=== PATIENT | male | born 1975 | race Caucasian/White ===

== ENCOUNTER 2019-11-25 15:04 | Inpatient (IN) | payer OTHER ==
[~2019-11-25] VITALS: Ht 177.8 cm; Wt 88.5 kg
--- OUTSIDE RECORDS SUMMARY | 2019-11-25 15:06 | XMS ---
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 [facility] has no Care Guidelines for this patient. Amor VISIT COUNT (12 MO.) [address] [place] [address] T[facility] TOTAL 12 NOTE: Visits indicate total known visits. ED/C VISIT TRACKING (12 MO.) 11/25/2019 15:04 [facility] TYPE: Emergency COMPLAINT: - CHEST PAIN, DIFFICULTY BREATHING 06/24/2019 21:41 [facility] TYPE: Emergency DIAGNOSES: - Migraine - Migraine, unspecified, intractable, without status migrainosu - migriane - Opioid dependence with withdrawal 06/24/2019 04:14 [facility] TYPE: Emergency DIAGNOSES: - Epigastric pain - Abdominal Pain - Constipation - ABD PAIN 05/03/2019 09:03 [facility] TYPE: Emergency DIAGNOSES: - Other acute postprocedural pain - Wound Check - Foot Pain 05/02/2019 13:31 [facility] TYPE: Emergency COMPLAINT: - PAIN IN LEFT SHOULDER DIAGNOSES: - Pain in left shoulder - Nicotine dependence, cigarettes, uncomplicated - SHLDER PAIN PCP UNK - Pain in left shoulder - Unspecified viral hepatitis C without hepatic coma 04/14/2019 19:22 [facility] TYPE: Emergency DIAGNOSES: - recheck foot infection - Acute lymphangitis, unspecified - Foot Pain - Cellulitis of right toe - Pain in right toe(s) 04/13/2019 22:51 [facility] TYPE: Emergency DIAGNOSES: - Cutaneous abscess of right foot - RT FOOT PAIN/ SWELLING - Skin Problem 03/25/2019 18:35 [facility] TYPE: Emergency DIAGNOSES: - Cutaneous abscess of right upper limb - Medication Refill - Opioid abuse, uncomplicated - Wound Check 03/20/2019 00:28 [facility] TYPE: Emergency DIAGNOSES: - Tachycardia, unspecified - Abscesses on arm and leg - Abscess - Cutaneous abscess of right upper limb - Other psychoactive substance abuse, in remission 03/14/2019 09:43 [facility] TYPE: Emergency COMPLAINT: - CELLULITIS OF RIGHT UPPER LIMB DIAGNOSES: - Cellulitis of right upper limb - ABSCESS PCP NONE 54 - Unspecified viral hepatitis C without hepatic coma - Nicotine dependence, cigarettes, uncomplicated - Cellulitis of right upper limb - ABSCESS PCP NONE 12/30/2018 13:35 [facility] TYPE: Emergency DIAGNOSES: - Abscess - right foot abscess 12/27/2018 12:07 [facility] TYPE: Emergency DIAGNOSES: - Abscesses - Cutaneous abscess, unspecified - Recurrent Skin Infections - Abscess INPATIENT VISIT TRACKING (12 MO.) 04/15/2019 00:03 [facility] [place] TYPE: Medical Surgical DIAGNOSES: - CELLULITIS 03/20/2019 05:27 [facility] [place] TYPE: Medical Surgical DIAGNOSES: - TACHYCARDIA [email or web address]
[2019-11-25] MEDS ORDERED: SUBOXONE 8 MG-1 EAC1 SL (15:19)
[2019-11-25] MEDS ORDERED: PROPRANOLOL HCL20 MG PO (15:19)
[2019-11-25] MEDS ORDERED: GABAPENTIN800 MG PO (15:20)
[2019-11-25] MEDS ORDERED: VENTOLIN HFA18 GM INH (15:20)
[2019-11-25] MEDS ORDERED: HYDROCHLOROTHIA25 MG PO (15:21)
[2019-11-25] MEDS ORDERED: LISINOPRIL10 MG PO (15:21)
--- NOTE | 2019-11-25 18:46 | NUR ---
PT LEFT AMA. THIS RN ENTERED ROOM AT 1835 TO DO PTS ADMISSION. PT SITTING ON THE EDGE OF THE BED, HESITENT TO GET HIS FEET IN THE BED. DISCUSSED WITH PT THE REASON THAT HE NEEDS TO STAY. PT ABLE TO ALLOW RN HOOK HIM UP TO DENTAL LABORATORY ASSISTANT. PT THEN STATED "I CAN'T STAY HERE, I CAN QUARENTINE AT HOME." THIS RN ATTEMPTED TO DISCUSS WITH PT THE RISKS OF GOING HOME. PT STATED HE UNDERSTANDS. DONNA RN IN ROOM TO ATTEMPT TO DISCUSS PT WITH PT TO STAY. THIS RN ABLE TO REMOVE IV AND GET PT TO SIGN AMA. DISCUSSED WITH PT WHEN TO RETURN TO THE ER. PT STATED HE UNDERSTANDS. PT WAS VERY RESPECTFUL HE LEFT AMA.
--- NOTE | 2019-11-26 12:35 | EKG ---
[facility] [address] [place], [place] [address] Signed Sinus tachycardia Otherwise normal ECG No previous ECGs available Confirmed by FABRICE CASTILLO MD ([id number]) on 11/26/2019 12:35:19 PM Electronically Signed By: FABRICE CASTILLO MD 11/26/19 1235 PATIENT NAME: JUAN JOSE FRANCO Electrocardiogram DATE OF : 73 PHYSICIAN: FABRICE CASTILLO MD REPORT #: [id number] REPORT IS CONFIDENTIAL AND NOT TO BE RELEASED WITHOUT AUTHORIZATION
--- NOTE | 2019-11-26 20:17 | PATH ---
[facility] [address] [facility] [place], [place] [address] Signed ORDERING PHYSICIAN: Troy Aguillon MD PATIENT NAME: JUAN JOSE FRANCOEL GENDER: Lorelei : 1975 SPECIMEN(S): No Source Given MOLECULAR PATHOLOGY RESULTS: SARS-CoV-2 Not Detected ADDITIONAL NOTES.: The [place] Fusion SARS-CoV-2 Assay is a multiplex real-time PCR (RT-PCR) in vitro diagnostic test intended for the qualitative detection of RNA from SARS-CoV-2 from individuals who meet COVID-19 clinical and/or epidemiological criteria. In general, SARS-CoV-2 RNA can be detected during the acute phase of infection. Positive results indicate the presence of SARS-CoV-2 RNA. Clinical correlation with patient history and other diagnostic information is necessary to determine patient infection status. Positive results do not rule out bacterial infection or co-infection with other viruses. Negative results do not preclude SARS-CoV-2 infection and should not be used as the sole basis for patient management decisions. Negative results must be combined with other clinical observations, patient history, and epidemiological information. The [place] Fusion SARS-CoV-2 Assay is not yet approved or cleared by the [place] FDA. When there are no FDA-approved or cleared tests available, and other criteria are met, FDA can make tests available under an emergency access mechanism called an Emergency Use Authorization (EUA). The EUA for this test is supported by the [place] of Health and Human Service's (HHS's) declaration that circumstances exist to justify the emergency use of in vitro diagnostics for the detection and/or diagnosis of the virus that causes COVID-19. This EUA will remain in effect for the duration of the COVID-19 declaration justifying emergency of IVDs, unless it is terminated or revoked by FDA, after which the test may no longer be used. The [place] Fusion SARS-CoV-2 Assay is for use only under EUA in US laboratories certified under the Clinical Laboratory Improvement Amendments of 1988 (CLIA) to perform high complexity tests. [facility] is certified under CLIA to perform high complexity PATIENT NAME: JUAN JOSE FRANCO PATHOLOGY DATE OF : 73 REPORT #: [id number] PHYSICIAN: LORE PATHOLOGY PCP: RAGHAVENDRA CARDENAS REPORT IS CONFIDENTIAL AND NOT TO BE RELEASED WITHOUT AUTHORIZATION [address] [address] Signed clinical laboratory testing. PERFORMING LABORATORY.: Molecular testing was performed by [facility] [address] [place], [place] [address], [place] [address] (Combination Presser: Wilman Fenton D.O.; CLIA#: [id number]) Diagnostician: System Interface Pathologist Electronically Signed 11/26/2019 Copies: ~ PATIENT NAME: JUAN JOSE FRANCO PATHOLOGY DATE OF : [birth year] REPORT #: [id number] PHYSICIAN: LORE PATHOLOGY PCP: RAGHAVENDRA CARDENAS REPORT IS CONFIDENTIAL AND NOT TO BE RELEASED WITHOUT AUTHORIZATION
== END 2019-11-25 18:50 | disposition left against medical advice (07) | DRG 206 ==
LOC: ED 15:04 → CCU 17:53
PROVIDERS: ADMIT Internal Medicine
DX: R09.02 Hypoxemia (principal); F11.20 Opioid dependence, uncomplicated; Z20.828 Contact with and (suspected) exposure to other viral communicable diseases; R06.02 Shortness of breath; R05 Cough; R07.9 Chest pain, unspecified; I10 Essential (primary) hypertension; F17.200 Nicotine dependence, unspecified, uncomplicated; M25.569 Pain in unspecified knee; Z79.899 Other long term (current) drug therapy; Z53.29 Procedure and treatment not carried out because of patient's decision for other reasons
CPT/HCPCS: 36600; 71045; 80053; 82803; 83735; 83880; 84484; 85025; 85379; 93005; 93010; 99285-25; C9803

== ENCOUNTER 2019-12-07 13:38 | Emergency (ER) | payer OTHER ==
[~2019-12-07] VITALS: Ht 177.8 cm; Wt 88.5 kg
[~2019-12-07 13:38] MED LIST: GABAPENTIN800 MG PO; HYDROCHLOROTHIA25 MG PO; LISINOPRIL10 MG PO; PROPRANOLOL HCL20 MG PO; SUBOXONE 8 MG-1 EAC1 SL; VENTOLIN HFA18 GM INH
--- OUTSIDE RECORDS SUMMARY | 2019-12-07 13:42 | XMS ---
PreManage Notification: JUAN JOSE FRANCO Security [employer] [place] Events No recent Security Events currently on file CRITERIA MET - [facility] - [facility] - 2 Visits in 30 Days CARE PROVIDERS RAGHAVENDRA CARDENAS Physician 11/26/2019-Current PHONE: [phone] [facility] has no Care Guidelines for this patient. Amor VISIT COUNT (12 MO.) [address] TOTAL 13 NOTE: Visits indicate total known visits. ED/UCC VISIT TRACKING (12 MO.) 12/07/2019 13:39 [facility] TYPE: Emergency COMPLAINT: - CHEST PAIN, SOB 11/25/2019 15:04 [facility] TYPE: Emergency COMPLAINT: - CHEST PAIN, DIFFICULTY BREATHING 06/24/2019 21:41 [facility] TYPE: Emergency DIAGNOSES: - Migraine - Migraine, unspecified, intractable, without status migrainosu - migriane - Opioid dependence with withdrawal 06/24/2019 04:14 [facility] TYPE: Emergency DIAGNOSES: - Epigastric pain - Abdominal Pain - Constipation - ABD PAIN 05/03/2019 09:03 [facility] TYPE: Emergency DIAGNOSES: - Other acute postprocedural pain - Wound Check - Foot Pain 05/02/2019 13:31 [facility] TYPE: Emergency COMPLAINT: - PAIN IN LEFT SHOULDER DIAGNOSES: - Pain in left shoulder - Nicotine dependence, cigarettes, uncomplicated - SHLDER PAIN PCP UNK - Pain in left shoulder - Unspecified viral hepatitis C without hepatic coma 04/14/2019 19:22 [facility] TYPE: Emergency DIAGNOSES: - recheck foot infection - Acute lymphangitis, unspecified - Foot Pain - Cellulitis of right toe - Pain in right toe(s) 04/13/2019 22:51 [facility] TYPE: Emergency DIAGNOSES: - Cutaneous abscess of right foot - RT FOOT PAIN/ SWELLING - Skin Problem 03/25/2019 18:35 [facility] TYPE: Emergency DIAGNOSES: - Cutaneous abscess of right upper limb - Medication Refill - Opioid abuse, uncomplicated - Wound Check 03/20/2019 00:28 [facility] TYPE: Emergency DIAGNOSES: - Tachycardia, unspecified - Abscesses on arm and leg - Abscess - Cutaneous abscess of right upper limb - Other psychoactive substance abuse, in remission 03/14/2019 09:43 [facility] TYPE: Emergency COMPLAINT: - CELLULITIS OF RIGHT UPPER LIMB DIAGNOSES: - Cellulitis of right upper limb - ABSCESS PCP NONE 54 - Unspecified viral hepatitis C without hepatic coma - Nicotine dependence, cigarettes, uncomplicated - Cellulitis of right upper limb - ABSCESS PCP NONE 12/30/2018 13:35 [facility] DIAGNOSES: - Abscess - right foot abscess 12/27/2018 12:07 [facility] DIAGNOSES: - Abscesses - Cutaneous abscess, unspecified - Recurrent Skin Infections - Abscess INPATIENT VISIT TRACKING (12 MO.) 11/25/2019 17:53 [facility] TYPE: Critical Care COMPLAINT: - HYPOXEIA,COVID RULE OUT DIAGNOSES: - Essential (primary) hypertension - Other tank terminal gauger (current) drug therapy - Pain in unspecified knee - Chest pain, unspecified - Chest pain, unspecified - Essential (primary) hypertension - Nicotine dependence, unspecified, uncomplicated - Hypoxemia - Contact with and (suspected) exposure to other viral communic - Pain in unspecified knee - Shortness of breath - Procedure and treatment not carried out because of patient's - Opioid dependence, uncomplicated - Other usp (current) drug therapy - Opioid dependence, uncomplicated - Cough - Procedure and treatment not carried out because of patient's - Contact with and (suspected) exposure to other viral communic - Cough - Shortness of breath - Nicotine dependence, unspecified, uncomplicated 04/15/2019 00:03 [facility] [place] TYPE: Medical Surgical DIAGNOSES: - CELLULITIS 03/20/2019 05:27 [facility] [place] TYPE: Medical Surgical DIAGNOSES: - [email or web address] [email or web address]
[2019-12-07] MEDS ORDERED: PREDNISONE20 MG PO (14:28)
--- NOTE | 2019-12-07 20:07 | EKG ---
[facility] [address] [facility] [place], [place] [address] Signed Sinus tachycardia with short [place] Possible Left atrial enlargement Possible Inferior infarct , age undetermined Abnormal ECG When compared with ECG of 25-NOV-2019 15:11, No significant change was found Confirmed by HOMAR HOLLEY DO ([id number]) on 12/07/2019 8:07:41 PM Electronically Signed By: HOMAR HOLLEY DO 12/07/192006 PATIENT NAME: JUAN JOSE FRANCO Electrocardiogram DATE OF : 73 PHYSICIAN: HOMAR HOLLEY DO REPORT #: [id number] REPORT IS CONFIDENTIAL AND NOT TO BE RELEASED WITHOUT AUTHORIZATION
== END 2019-12-07 15:07 | disposition home or self-care (01) ==
LOC: ED 13:38
DX: J44.1 Chronic obstructive pulmonary disease with (acute) exacerbation (principal); I10 Essential (primary) hypertension; F17.200 Nicotine dependence, unspecified, uncomplicated; Z79.899 Other long term (current) drug therapy
CPT/HCPCS: 71045; 80053; 83735; 84484; 85025; 93005; 93010; 96374; 99285-25; J1100